=== PATIENT | male | born 1955 | race Caucasian/White ===

== ENCOUNTER 2022-03-13 13:54 | Outpatient (RCR) | payer OTHER, SELFPAY | END 2022-04-01 14:23 | disposition home or self-care (01) | LOC: HO.WCC 13:54 | PROVIDERS: Visit Provider Surgery | DX: Z09 Encounter for follow-up examination after completed treatment for conditions other than malignant neoplasm (principal); I87.302 Chronic venous hypertension (idiopathic) without complications of left lower extremity; I48.91 Unspecified atrial fibrillation; Z87.891 Personal history of nicotine dependence | CPT/HCPCS: 99212; 99213 ==